=== PATIENT | male | born 1970 | race Caucasian/White ===

== ENCOUNTER 2016-03-18 18:46 | Emergency (ER) | payer OTHER ==
[2016-03-18] MEDS ORDERED: DILAUDID 1 MG/ML AMP ONE (20:25)
[2016-03-18] MEDS ORDERED: DEXAMETHASONE 4 MG/ML VIAL ONE (20:26)
[2016-03-18] MEDS ORDERED: CYCLOBENZAPRINE 10 MG TAB ONE (20:26)
== END 2016-03-18 20:50 | disposition home or self-care (01) ==
LOC: ER 18:46
DX: S39.012A Strain of muscle, fascia and tendon of lower back, initial encounter (principal); M54.16 Radiculopathy, lumbar region
CPT/HCPCS: 96372; 99283; J1170